=== PATIENT | male | born 1990 | race Caucasian/White ===

== ENCOUNTER 2025-03-12 18:01 | Emergency (ER) | payer BC ==
[~2025-03-12] VITALS: Ht 175.3 cm; Wt 84.0 kg
[2025-03-12 18:08] VITALS: O2SAT 100
[2025-03-12] MEDS: IBUPROFEN 600MG TABLET PO ONE (20:33)
[2025-03-12] MEDS: TETANUS, DIPHTHERIA, PERTUSSIS VAC/PF 0.5ML (>10YR OLD) IM ONE (20:38)
[2025-03-12 21:27] VITALS: BP 137/82; PULSE 78; RESP 18; TEMP 36.9; O2SAT 100
[2025-03-12] MEDS ORDERED: BO1 TP (21:28)
[2025-03-12] MEDS ORDERED: IBUP-2029 MT (21:29)
== END 2025-03-12 21:55 | disposition home or self-care (01) ==
LOC: ER 18:01
DX: S83.92XA Sprain of unspecified site of left knee, initial encounter (principal); S93.401A Sprain of unspecified ligament of right ankle, initial encounter; V29.99XA Rider (driver) (passenger) of other motorcycle injured in unspecified traffic accident, initial encounter; Y93.89 Activity, other specified; Y92.89 Other specified places as the place of occurrence of the external cause; Y99.8 Other external cause status
CPT/HCPCS: 71045; 73560; 73610; 90471; 90715; 99284